=== PATIENT | female | born 1970 | race Caucasian/White ===

== ENCOUNTER 2024-04-06 06:15 | Inpatient (IN) ==
--- NOTE | 2024-03-17 12:12 | PAT Medication Instructions ---
Medication Instructions Date of Service March 17, 2024 Home Medications cholecalciferol (vitamin D3) 50 mcg (2,000 unit) capsule (Vitamin D3) 50 mcg PO QPM omeprazole 20 mg tablet,delayed release 20 mg PO BID pregabalin 50 mg capsule (Lyrica) 50 mg PO BID salsalate 750 mg tablet 750 mg PO TID topiramate 25 mg tablet (Topamax) 50 mg PO QAM tramadol 37.5 mg-acetaminophen 325 mg tablet 1 tab PO TID PRN Pain upadacitinib 15 mg tablet,extended release 24 hr (Rinvoq) 15 mg PO QPM ASK your surgeon for instructions salsalate 750 mg tablet 750 mg PO TID ASK your prescriber and surgeon upadacitinib 15 mg tablet,extended release 24 hr (Rinvoq) 15 mg PO QPM Take morning of surgery With a small sip of water, OTHERWISE NOTHING TO EAT OR DRINK AFTER MIDNIGHT: omeprazole 20 mg tablet,delayed release 20 mg PO BID pregabalin 50 mg capsule (Lyrica) 50 mg PO BID topiramate 25 mg tablet (Topamax) 50 mg PO QAM tramadol 37.5 mg-acetaminophen 325 mg tablet 1 tab PO TID PRN Pain (if needed) Take evening before surgery cholecalciferol (vitamin D3) 50 mcg (2,000 unit) capsule (Vitamin D3) 50 mcg PO QPM omeprazole 20 mg tablet,delayed release 20 mg PO BID pregabalin 50 mg capsule (Lyrica) 50 mg PO BID tramadol 37.5 mg-acetaminophen 325 mg tablet 1 tab PO TID PRN Pain (if needed) Other Notes If you have any questions please call us at [phone] or [phone] or [phone] or [phone]
--- NOTE | 2024-03-25 10:56 | Anesthesiology Consultation ---
Date of Service March 25, 2024 Assessment & Plan (1) Encounter for pre-operative examination: - Infectious disease screening: Per assessment on 03/25/24: No known recent infectious disease contacts or current infectious disease symptoms. - PCP visit (03/19/24): "Patient is a 53-year-old female who presents today for preoperative clearance for back surgery. The surgery is scheduled with Dr. Carney on April 06, 2024.. Patient is low medial risk for the listed procedure" - Check BSG AM DOS (Hx hypoglycemia- Rare, intermittent episodes typically related to prolonged fasting, episode post-operatively as well, OR made aware) - Anesthesia concern: Patient states she "freaks out" if mask/things are placed near face while fully awake. She states if "groggy"/asleep does not have an issue. - Neutropenia: Preop labs done 03/25/24 notes low WBC at 2.99 and critically low neutrophils at 0.84. Of note, patient taking Rinvoq for psoriatic arthritis. Note written to PCP regarding neutropenia. Received PCP response (dated 03/26/24) : "Neutropenia may be secondary to Rinvoq which is prescribed by rheumatology for psoriatic arthritis. Reviewed all testing in detail. No contraindications for upcoming surgery. She does have upcoming followup with rheumatology as well [after upcoming surgery]. She plans to hold Rinvoq 1 week prior to surgical procedure." > Surgeon's office made aware. - Case (including leukopenia/neutropenia) reviewed with Dr. Henry. Will recheck CBCD DOS. Patient otherwise acceptable risk for surgery. Chart Review Chart Review: Patient seen in Pre Admission Testing Teaching & Discussion Pre-Anesthesia Teaching/Discussion Notes: Instructed NPO after midnight before surgery,except medications with 15 cc of water. Medication instructions provided according to the PAT guidelines. History Surgery Operation Date: 04/06/24 11:05 Proposed Procedures p L4-S1 Decompression and Fusion with Spinal Cord Monitoring - Kush Carney, DO Height/Weight Height: 4 ft 11 in Weight: 64 kg Allergies Allergy/AdvReac Type Severity Reaction Status Date / Time dexamethasone [From Decadron] Allergy Mild Nausea Verified 03/15/24 07:29 secukinumab Allergy Mild Rash Verified 03/15/24 07:29 diclofenac Allergy Unknown ? Verified 03/25/24 11:25 Hives/nausea etodolac Allergy Unknown ? Verified 03/25/24 11:25 Hives/nausea hydroxychloroquine Allergy Unknown Unknown Verified 03/15/24 07:29 isotretinoin Allergy Unknown Unknown Verified 03/15/24 07:29 leflunomide Allergy Unknown Unknown Verified 03/15/24 07:29 meloxicam Allergy Unknown ? Verified 03/25/24 11:25 Hives/nausea methotrexate Allergy Unknown Unknown Verified 03/15/24 07:29 Medications Home Medications Medication Instructions Recorded Confirmed Last Taken cholecalciferol (vitamin D3) 50 50 mcg PO QPM 11/26/23 03/15/24 01/05/24 mcg (2,000 unit) capsule (Vitamin D3) omeprazole 20 mg tablet,delayed 20 mg PO BID 11/26/23 03/15/24 01/07/24 05:00 release pregabalin 50 mg capsule (Lyrica) 50 mg PO BID 11/26/23 03/15/24 01/07/24 05:00 salsalate 750 mg tablet 750 mg PO TID 11/26/23 03/15/24 12/31/23 topiramate 25 mg tablet (Topamax) 50 mg PO QAM 11/26/23 03/15/24 01/07/24 05:00 tramadol 37.5 mg-acetaminophen 325 1 tab PO TID PRN Pain 11/26/23 03/15/24 01/07/24 05:00 mg tablet upadacitinib 15 mg tablet,extended 15 mg PO QPM 11/26/23 03/15/24 01/06/24 18:00 release 24 hr (Rinvoq) Past Medical History Medical History (Updated 03/25/24 @ 11:31 by Sofia Cary) Chronic back pain Diverticulosis Fibromyalgia GERD (gastroesophageal reflux disease) Greater trochanteric pain syndrome of both lower extremities [place] [facility] [place] Right 01/2024 Symptoms improved since procedures Hx of migraine headaches Hypoglycemia Rare, intermittent episodes typically related to prolonged fasting, episode post-operatively as well Psoriasis Psoriatic arthritis Restless leg syndrome Weakness of both hips Exercise / Class Metabolic Activity II 4-5 Yardwork/Stairs/Walk up hill Past Surgical History Surgical History History of ankle surgery x2 History of carpal tunnel release of both wrists History of hip surgery Left percutaneous [place] [facility] [place] Right 01/2024 History of hip surgery Right percutaneous US tenotomy History of tonsillectomy and adenoidectomy Hx laparoscopic cholecystectomy Hx of bilateral breast reduction surgery Hx of section Hx of dilation and curettage mutliple Hx of esophagogastroduodenoscopy Hx of removal of cyst left ankle Hx of total hysterectomy Past Anesthesia History No Family Hx of Anesthesia Complications and Other (Rare, intermittent episodes typically related to prolonged fasting, episode post-operatively as well) History of PONV No Hx of PONV and Hx of Motion Sickness (Remote hx) Social History Smoking Status: Never smoker Do You Dip or Chew Tobacco: No Hx Alcohol Use: Yes Alcohol type: beer alcohol intake frequency: holidays/special occasions only Hx Substance Use: No substance use type: does not use Review of Systems Patient denies chest pain, shortness of breath, dyspnea on exertion, fever, chills, cough, wheezing, palpitations. Physical Exam Vital Signs BP 115/73 P 86 TEMP 98.6 SP02 100%RA RESP 16 Physical Full cervical extension range of motion. Full TMJ range of motion. TMD 3 finger breaths Mallampati Score II Dentition: intact Lungs: clear throughout to auscultation Cardiac: regular rate and rhythm, no murmurs noted Spine: normal Carotid arteries: negative bruit Extremities: no LE edema Lab Results Anesthesia Preop Results Results Anesthesia Widget: WBC 2.99 K/ul (4.8-10.8) L 03/25/24 Hgb 12.6 g/dl (12.0-16.0) 03/25/24 Hct 37.9 % (37.0-47.0) 03/25/24 Plt 326 K/uL (130-400) 03/25/24 Na 141 mmol/L (136-145) 03/25/24 K 4.2 mmol/L (3.5-5.1) 03/25/24 Cl 108 mmol/L (98-107) H 03/25/24 CO2 28 mmol/L (21-32) 03/25/24 BUN 10 mg/dl (6-23) 03/25/24 Creat 0.66 mg/dl (0.6-1.2) 03/25/24 Glucose Level 96 mg/dl (70-99(Fasting)) 03/25/24 PT 10.6 Seconds (9.0-12.0) 03/25/24 PTT 23 Seconds (21-31) 03/25/24 INR 1.0 (0.9-1.1) 03/25/24 Urine Color Yellow 03/25/24 Urine Appearance Clear (Clear) 03/25/24 Urine pH 8.0 (4.5-7.5) H 03/25/24 Urine Specific Gardner 1.004 (1.000-1.030) 03/25/24 Urine Protein Negative (Negative) 03/25/24 Urine Glucose (UA) Negative (Negative) 03/25/24 Urine Ketones Negative (Negative) 03/25/24 Urine Blood Negative (Negative) 03/25/24 Urine Nitrite Negative (Negative) 03/25/24 Urine Bilirubin Negative (Negative) 03/25/24 Urine Urobilinogen Negative (Negative) 03/25/24 Urine Leukocyte Esterase Negative (Negative) 03/25/24 Blood Type A Positive 03/25/24 Antibody Screen NEGATIVE 03/25/24 Testing Electrocardiogram Date: 03/25/24 Findings: + NSR @ (77) Chest X-Ray Date: 03/25/24 Findings: + NAD
[2024-04-06] MEDS: LR 60ML/HR IV SCH (06:51)
[2024-04-06] MEDS: ACETAMINOPHEN 500 MG TAB PO SCH (06:52)
[2024-04-06] MEDS: CeleBREX 200 MG CAP PO SCH (06:53)
[2024-04-06] MEDS: GABAPENTIN 900 MG DOSE PO SCH (06:53)
[2024-04-06] MEDS ORDERED: PROPOFOL IV EMULSION 10 MG/ML 20 ML VIAL IV ONE (06:56)
[2024-04-06] MEDS ORDERED: DEXAMETHASONE SOD INJ 4 MG/ML VIAL ONE (06:56)
[2024-04-06] MEDS ORDERED: LIDOCAINE 2% 2 ML VIAL/AMP(20MG/ML) INFIL ONE ×2 (06:56)
[2024-04-06] MEDS ORDERED: ONDANSETRON INJ 2 MG/ML 2 ML VIAL ONE (06:56)
[2024-04-06] MEDS ORDERED: MIDAZOLAM HCL 1 MG/ML 2ML VIAL ONE (06:56)
[2024-04-06] MEDS ORDERED: fentaNYL citrate PF 100 MCG/2 ML VIAL ONE (06:56)
[2024-04-06] MEDS ORDERED: ROCURONIUM BROMIDE 10 MG/ML 5 ML VIAL IV ONE ×8 (06:57→08:03)
[2024-04-06 07:00] LABS: Basophils # (auto) 0.02 K/uL (0.00-0.20); Basophils % (auto) 0.6 %; Eosinophils # (auto) 0.03 K/uL (0.00-0.50); Eosinophils % (auto) 0.8 %; Hematocrit (blood only) 37.9 % (37.0-47.0); Hemoglobin 12.9 g/dl (12.0-16.0); Immature Granulocytes # (auto) 0.02 K/uL (0.01-0.20); Immature Granulocytes % (auto) 0.6 %; Lymphocytes # (auto) 1.23 K/uL (1.20-3.40); Lymphocytes % (auto) 34.8 %; Mean Corpuscular Hemoglobin 30.9 pg (25.0-34.0); Mean Corpuscular Volume 90.7 fL (80.0-100.0); Mean Platelet Volume 8.5 fL (9.4-12.4); Monocytes # (auto) 0.46 K/uL (0.11-0.59); Neutrophils # (auto) 1.77 K/uL (1.40-6.50); Neutrophils % (auto) 50.2 %; Platelet Count 239 K/uL (130-400); RDW Coefficient of Variation 12.5 % (11.5-14.5); RDW Standard Deviation 41.2 fL (36.4-46.3); Red Blood Count 4.18 M/uL (4.20-5.40); White Blood Count 3.53 K/ul (4.8-10.8)
[2024-04-06] MEDS: LR 15ML/HR IV SCH (07:00)
--- NOTE | 2024-04-06 07:36 | History & Physical Bridge Note ---
Date of Service April 06, 2024 History & Physical Bridge Note I have examined the patient, reviewed the History & Physical and in the interval since the performance of the History & Physical I have noted the following changes of clinical significance: no changes noted
--- NOTE | 2024-04-06 07:37 | History & Physical Report ---
Date of Service April 06, 2024 Assessment & Plan (1) Postlaminectomy syndrome of lumbar region: Plan: L4-S1 decompression and fusion History of Present Illness Chief Complaint: Back and leg pain Primary Care Provider: Nina Santiago DO This is a 53-year-old female who presents with chronic persistent back and leg pain and failing course of nonoperative care is here for surgical intervention. Allergies Allergy/AdvReac Type Severity Reaction Status Date / Time dexamethasone [From Decadron] Allergy Mild Nausea Verified 04/06/24 06:45 secukinumab Allergy Mild Rash Verified 04/06/24 06:45 diclofenac Allergy Unknown ? Verified 04/06/24 06:45 Hives/nausea etodolac Allergy Unknown ? Verified 04/06/24 06:45 Hives/nausea hydroxychloroquine Allergy Unknown Nausea Verified 04/06/24 06:45 isotretinoin Allergy Unknown Unknown Verified 04/06/24 06:45 leflunomide Allergy Unknown Unknown Verified 04/06/24 06:45 meloxicam Allergy Unknown ? Verified 04/06/24 06:45 Hives/nausea methotrexate Allergy Unknown Unknown Verified 04/06/24 06:45 Home Medications Medication Instructions Recorded Confirmed Type cholecalciferol (vitamin D3) 50 50 mcg PO QPM 11/26/23 04/06/24 History mcg (2,000 unit) capsule (Vitamin D3) omeprazole 20 mg tablet,delayed 20 mg PO BID 11/26/23 04/06/24 History release pregabalin 50 mg capsule (Lyrica) 50 mg PO BID 11/26/23 04/06/24 History salsalate 750 mg tablet 750 mg PO TID 11/26/23 04/06/24 History topiramate 25 mg tablet (Topamax) 50 mg PO QAM 11/26/23 04/06/24 History tramadol 37.5 mg-acetaminophen 325 1 tab PO TID PRN Pain 11/26/23 04/06/24 History mg tablet upadacitinib 15 mg tablet,extended 15 mg PO QPM 11/26/23 04/06/24 History release 24 hr (Rinvoq) Past Med/Surg History Problem List (Updated 04/06/24 @ 07:37 by Kush Carney DO) Postlaminectomy syndrome of lumbar region Encounter for pre-operative examination Degenerative spondylolisthesis Degenerative disc disease, lumbar Weakness of both hips Vitamin D deficiency Medical History (Updated 04/06/24 @ 07:37 by Kush Carney DO) Hypoglycemia Rare, intermittent episodes typically related to prolonged fasting, episode post-operatively as well Hx of migraine headaches Greater trochanteric pain syndrome of both lower extremities Left percutaneous US tenotomy 12/2023 [facility] (local anesthesia only), Right 01/2024 Symptoms improved since procedures Diverticulosis Psoriasis Fibromyalgia Chronic back pain GERD (gastroesophageal reflux disease) Restless leg syndrome Psoriatic arthritis Weakness of both hips Surgical History Hx of esophagogastroduodenoscopy History of hip surgery Right percutaneous US tenotomy History of hip surgery Left percutaneous US tenotomy 12/2023 [facility] (local anesthesia only), Right 01/2024 History of carpal tunnel release of both wrists History of tonsillectomy and adenoidectomy Hx of bilateral breast reduction surgery Hx of section Hx of total hysterectomy Hx of dilation and curettage mutliple Hx laparoscopic cholecystectomy Hx of removal of cyst left ankle History of ankle surgery x2 Social History Smoking Status: Never smoker Tobacco Type: Cigarettes Second Hand Exposure: No; Do You Dip or Chew Tobacco: No; Tobacco Cessation Education Requested by Patient: No Hx Alcohol Use: Yes Alcohol type: beer Hx Substance Use: No Preferred Language: Montenegrin Communication Ability: Effective City Detective Required: No Beliefs That Will Affect Care: None Current Living Situation: Spouse Other Information That Helps Us Care for You: No Feels Safe at Home: Yes Safety Concerns: Feels Safe At This Time Assistive Devices: Glasses Physical Exam Physical Exam: Patient is alert and oriented heart regular in rhythm lungs clear Results & Data Results & Data Vital Signs (Past 12 Hours) Vital Signs Temp Pulse Resp BP Pulse Ox O2 Del Method 04/06/24 06:41 36.8 C 73 20 141/65 H 99 Room Air
[2024-04-06] MEDS: ceFAZolin 2000MG 2,000 MG/15 ML SYR IV SCH (07:45)
[2024-04-06] MEDS ORDERED: ePHEDrine sulfate 50 MG/ML AMP IV PRN (07:47)
[2024-04-06] MEDS ORDERED: ONDANSETRON INJ 2 MG/ML 2 ML VIAL IV PRN ×2 (07:47→11:54)
[2024-04-06] MEDS ORDERED: ATROPINE SULFATE 0.1 MG/ML 10ML SYR IV PRN (07:47)
[2024-04-06] MEDS ORDERED: HYDROmorphone INJ 2 MG/ML SYR/VIAL IV PRN (07:47)
[2024-04-06] MEDS ORDERED: HYDROmorphone INJ 1 MG/ML SYRINGE IV PRN (07:47)
[2024-04-06] MEDS: BUPIVACAINE/EPINEPHRINE 0.25% 1:200,000 30 ML VIAL ONE (08:08)
[2024-04-06] MEDS ORDERED: KETAMINE HCL 10MG/ML SYR ONE (08:08)
[2024-04-06] MEDS ORDERED: GLYCOPYRROLATE 0.2 MG/ML VIAL ONE (08:08)
[2024-04-06] MEDS ORDERED: ePHEDrine sulfate 50 MG/5 ML SYR ONE (08:20)
[2024-04-06] MEDS ORDERED: SUGAMMADEX SODIUM 200 MG/2 ML VIAL IV ONE (08:20)
[2024-04-06] MEDS: ceFAZolin 330 MG/ML 1 GM VIAL ONE (09:22)
[2024-04-06] MEDS: FLOSEAL HEMOSTATIC MATRIX 10ML TOP ONE (09:22)
[2024-04-06] MEDS ORDERED: MoRPHine SULFATE 2 MG/ML CARP ONE (09:35)
--- NOTE | 2024-04-06 09:37 | Operative Report ---
Post Operative Report Pre & Post Diagnosis Operation Date: 04/06/24 07:45 Pre-Op Diagnosis: Spinal Stenosis of Lumbar Region with Radiculopathy Lumbar spondylolisthesis with neurogenic claudication Post-Op Diagnosis: same I identified the patient and participated in the time-out.: Yes Procedure Operation Date: 04/06/24 07:45 Actual Procedures #1 lumbar decompression with bilateral medial facetectomies and foraminotomies L3-L4, L4-L5 and L5-S1. #2 posterior spinal fusion L5-S1. #3 placement posterior instrumentation L4-S1. #4 interbody fusion L4-L5 L5-S1. #5 placement Spira 8 x 22 mm x 2 at L5-S1 and 12 x 22 x 2 mm at L4-5. #6 placement of locally harvested morselized autograft combined with infuse sponge and Koros in the posterior gutters. #7 placement of local autograft posterior gutters. #8 application of versa wrap over the exposed dura. Surgeon Kush Carney, In House Cra Jamilah Rose Estimated Blood Loss 300 Findings Consistent with Post-Op Diagnosis Specimens None Indications This is a 53-year-old female who presents above-mentioned diagnosis after failing course of nonoperative care is here for surgical invention. Description of Procedure Patient was met with identified informed consent obtained. Patient was then taken to the operative suite underwent intubation placed in a prone position on the Marc table on top of the Juan M frame. Lumbar spine was then prepped and draped in normal sterile fashion. Sharp dissection with the assistance of Bovie cautery form down to and exposing the lamina and transverse processes of L4-L5 and sacral ala bilaterally. From caudal to cephalad fashion complete laminectomy of L5 was performed including bilateral medial facetectomies and foraminotomies addressing severe spinal stenosis. Then proceeded to perform a complete laminectomy of L4 again with bilateral medial facetectomies and foraminotomies addressing severe spinal stenosis and lastly partial laminectomy of L3 with bilateral medial facetectomies to address subarticular disease. Pedicle screws were then placed in L4-L5 and S1 levels bilaterally with assistance of fluoroscopy in the proper size clint placed. By way of transforaminal approach on the right discectomy of L5-S1 was performed endplates guided to subcortical bleeding bone and 8 x 22 mm spiral cage filled with os designed tapped into position. Then proceeded to the left transforaminal region at L5-S1. Discectomy formed endplates grade 2 subcortical bleeding bone and a second 8 x 22 mm Spira cage filled with os designed tapped into position. Then proceeded L4-5. By way of transforaminal approach on the left discectomy performed endplates guarded distal cortical bleeding bone and a 12 x 22 mm spiral cage filled with os designed tapped into position. Then proceeded to the right transforaminal region at L4-5. Again discectomy performed endplates guided to subcortical bleeding bone and a second 12 x 22 mm spiral cage filled with os designed tapped into position. The rods then compressed locked into final position bilaterally. The transverse processes of L4-5 and sacral ala burred to subcortical bleeding bone. Infuse collagen sponge combined with Koros and local autograft placed in the posterior gutters. Versa wrap placed over the exposed dura. 15 round RUPERT drain inserted. The incision was then closed with 1 Vicryl the fascia 2-0 Vicryl subcutaneously and 4 Monocryl for fascial closure. Steri-Strips sterile dressing placed. Patient waken taken to PACU in stable condition. Please note spinal cord monitoring was utilized at the procedure no changes noted. Jamilah Rose was present out the entire surgery and while the patient positioning complex portions of the surgery and final skin closure. Im ordering 20 grams of Triple [place] Collagen Powder (ParkerVision [id number]) to treat an incision wound that was caused by a spine procedure. The incision is approxim ately 2 cm(W) x 4 cm(L) into the joint (D) in size and is a full thickness wound. Triple [place] collagen comes in 1 gram packets so 20 packets were ordered. Given the size of the wound, with light to moderate exudate I chose to order a 20 day supply. The patient will be provided instructions for proper application of the collagen wound kit. The patient will be asked to apply the collagen powder daily and then cover it with sterile dressings dispensed. Collagen was selected as I expect the collagen to attract monocytes and fibroblasts, act as a sacrificial substrate for MMPs, and ultimately proved a matrix for tissue and vessel growth. The collagen will act as a primary dressing in this scenario. It is medically necessary for proper healing of these wounds to improve bioavailability and contact with each wound surface, this is also to help prevent infection of wounds and promote healing ultimately leading to a better healing outcome and limit the risk of infection. I attest to the content of the Intraoperative Record and any orders documented therein. Any exceptions are noted below.
--- NOTE | 2024-04-06 09:39 | Fluoroscopy Report ---
FL lumbar spine 2-3V CLINICAL HISTORY: L4-S1 DECOMPRESSION COMPARISON STUDY: MRI lumbar spine 02/09/2024 FLUOROSCOPY TIME: 27.4 seconds FLUOROSCOPY IMAGES: 2 EXPOSURE DOSE: 24.12 mGy FINDINGS: Posterior interbody clint and screw fusion with discectomy at L4-S1. The hardware appears int act. No unexpected opaque foreign bodies. IMPRESSION: Fluoroscopic assistance as above. ACT 112: Negative or not required by law. Electronically signed by: Freddie Linton M.D. 04/06/2024 9:37 AM
--- OUTSIDE RECORDS SUMMARY | 2024-04-06 09:51 | External Medical Summary | Summary of Care ---
Author Name Unknown Organization [facility] Address [address] [place] [address] Phone [phone] Care Team Providers Care Tile Finisher Name Role Phone Nina Santiago DO Primary Care Provider +1- [phone] Reason for Visit * Reason Onset Date Comments Fax 03/26/2024 Encounter Details Date Type Department Care Team (Late st Contact Info) Description 03/26/2024 [facility] [address] [place] [address] Nina Santiago DO [address] [place] [address] Fax Allergies Active Allergy Reactions Criticality Noted Date Comments Isotretinoin Other (Please comment) 07/19/2014 High Trigylcerides Diclofenac-Misoprostol Other (Please comment) 01/25/2020 Elevated liver enzymes. Secukinumab Rash 10/24/2023 Dexamethasone Nausea/vomiting 05/15/2018 Nausea when rakes decadron Diclofenac 05/07/2023 Etodolac 05/07/2023 Leflunomide 05/07/2023 Methotrexate 05/07/2023 Meloxicam Hives 05/07/2023 Hydroxychloroquine 05/07/2023 documented as of this encounter (statuses as of 03/30/2024) Medications Medication Sig Dispensed Refills Start Date End Date Status Cholecalciferol (VITAMIN D-3) 25 MCG (1000 UT) Capsule Take 1 Capsule by mouth in the morning. Active Topiramate 25 MG Oral Tablet (Topamax)Indications :Other migraine with status migrainosus, not intractable Take 1 Tablet by mouth in the morning and 1 Tablet before bedtime. 60 Tablet 5 10/24/2023 Active Omeprazole 20 MG Oral Capsule Delayed Release (PriLOSEC)Indication s:Gastroesophageal reflux disease without esophagitis Take 1 Capsule by mouth 2 times a day. 180 Capsule 12/23/2023 Active Lyrica 50 MG Oral Capsule Take 1 Capsule by mouth in the morning and 1 Capsule before bedtime. 60 Capsule 3 02/09/2024 Active Rinvoq 15 MG Oral Tablet Extended Release 24 Hour (Upadacitinib ER)Indications:Psori atic arthritis (HCC),Generalized osteoarthritis,Fibro myalgia,Psoriasis Take 1 Tablet by mouth daily. 30 Tablet 3 02/10/2024 Active traMADol-Acetaminoph en 37.5-325 MG Oral Tablet (Ultracet) Take 1 Tablet by mouth every 8 hours as needed for Pain, Moderate. 270 Tablet 02/16/2024 Active Salsalate 750 MG Oral Tablet Take 1 Tablet by mouth in the morning and 1 Tablet at noon and 1 Tablet before bedtime. 270 Tablet 1 03/01/2024 Active documented as of this encounter (statuses as of 03/30/2024) Active Problems Problem Noted Date Diagnosed Date Psoriatic arthritis 06/06/2021 Benign paroxysmal positional vertigo due to bilateral vestibular disorder 04/01/2018 S/P bilateral breast reduction 12/13/2016 Diverticulosis 08/12/2016 Restless legs syndrome 03/01/2015 Gastroesophageal reflux disease without esophagi tis 03/01/2015 Vitamin D deficiency 07/20/2014 DDD (degenerative disc disease), lumbar 07/19/19 15 Fibromyalgia Psoriasis documented as of this encounter (statuses as of 03/30/2024) Resolved Problems Problem Noted Date Diagnosed Date Resolved Date Chronic pharyngitis 12/05/2015 08/12/19 17 documented as of this encounter (statuses as of 03/30/2024) Immunizations Name Administration Dates Next Due TDAP (age 10 and older)(Boostrix) 03/03/2015 Zoster Vaccine Recombinant (Shingrix) 11/20/2021 documented as of this encounter Social History Tobacco Use Types Packs/Day Years Used Date Smoking Tobacco: Former Cigarettes Q uit: 07/19/1996 Smokeless Tobacco: Never Alcohol Use Standard Drinks/Week Comments No 0 (1 standard drink = 0.6 oz pur e alcohol) PHQ-2 Answer Date Recorded PHQ Adult Total Score 3 07/11/2023 Hunger Vital Sign Answer Date Recorded Within the past 12 months, y ou worried that your food would run out before you got the money to buy more. Never true 07/11/19 24 Within the past 12 months, t he food you bought just didn't last and you didn't have money to get more. Never true 07/11/2023 Childcare Answer Date Recorded Do you feel overwhelmed with taking care of a child, family member or friend? No 07/11/2023 Does your family need help f inding childcare? (Household - for ages 0-17 years) Not on file 07/11/2023 Clothing Answer Date Recorded Have you been unable to get clothing when it was really needed? No 07/11/2023 Is your family able to get c lothes or diapers when needed? (Household - for ages 0-17 years) Not on file 07/11/2023 Personal Safety Answer Date Recorded Do you feel unsafe or have concerns for your saf ety? No 07/11/2023 Do you have concerns for you r family's safety? (Household - for ages 0-17 years) Not on file 07/11/2023 Utilities Answer Date Recorded Do you have trouble paying y our heating, water, or electric bill? No 07/11/2023 Is your family able to pay t he heat, water, or electric bill? (Household - for ages 0-17 years) Not on file 07/11/2023 Does your family have access to good internet? (Household - for ages 0-17 years) Not on file 07/11/2023 Employment Status Answer Date Recorded Are you unemployed or without regular income? No 07/11/2023 Does the household have a re gular source of income? (Household - for ages 0-17 years) Not on file 07/11/2023 Social Connections Answer Date Recorded How often do you feel lonely or isolated from th ose around you? Never 07/11/2023 Financial Resource Strain Answer Date R ecorded Do you have any trouble payi ng for your medications, or do you think you might in the future? No 07/11/2023 Does your family have troubl e paying for medicine? (Household - for ages 0-17 years) Not on file 07/11/2023 Transportation Needs Answer Date Record ed READ ONLY Do you have troubl e getting a ride to medical visits or work? Never True 07/11/2023 Does your family have a hard time getting a ride to doctors visits? (Household - for ages 0-17 years) Not on file 07/11/2023 Has lack of transportation k ept you from medical appointments, meetings, work, or from getting things needed for daily living? Check all that apply. (Adult - for ages 18 years and over) Not on file 07/11/2023 Do you (or your family) have trouble finding or paying for a ride (transportation)? (Household - for ages 0-17 years) Not on file 07/11/2023 Housing Stability Answer Date Recorded Do you currently live in a s helter or have no steady place to sleep at night? No 07/11/2023 READ ONLY Do you think you a re at risk of becoming homeless? No 07/11/2023 Does your family worry about paying for your home or becoming homeless? (Household - for ages 0-17 years) Not on file 0 07/11/2023 Are you homeless or worried that you might be in the future? (Adult - for ages 18 years and over) Not on file Are you (or your family) jero eless or worried that you might be in the future? (Household - for ages 0-17 years) Not on file Food Insecurity Answer Date Recorded Do you need food for this week? No 07/11/2023 Are you able to get enough f ood for your family? (Household - for ages 0-17 years) Not on file 07/11/2023 Does your family need food t his week? (Household - for ages 0-17 years) Not on file 07/11/2023 Do you always have enough fo od for your family? (Household - for ages 0-17 years) Not on file 07/11/2023 Sex and Gender Information Value Date Recorded Sex Assigned at Female 07/11/2023 7:13 AM EST Gender Identity Female 07/11/2023 7:13 AM EST Sexual Orientation Straight 07/11/2023 7: 13 AM EST Job Start Date Occupation Industry Not on file Not on file Not on file documented as of this encounter Miscellaneous Notes * Telephone Encounter - Susanna Betancourt OSA - 03/30/2024 11:08 AM EDT Office note is faxed * Telephone Encounter - Angie Fragoso LPN - 03/30/2024 10:46 AM EDT Pt updated Please assist with faxing office note for pre op clearance * Telephone Encounter - Kelvin Ramirez PA-C - 03/26/2024 10:10 AM EDT Reviewed in detail. Neutropenia may be secondary to Rinvoq which is prescribed by rheumatology for psoriatic arthritis. Reviewed all testing in detail. No contraindications for upcoming surgery. She does have upcoming follow-up with rheumatology as well. She plans to hold Rinvoq one week prior to surgical procedure. * Telephone Encounter - Angie Fragoso LPN - 03/26/2024 10:03 AM EDT Received, scanned in and placed on desk of provider of pre op clearance to be reviewed * Telephone Encounter - Kourtney Wynn OSA - 03/26/2024 9:41 AM EDT Received a call asking if fax was received by office. Name/Company sending fax: [facility] pre admission testing What fax is pertaining to: abnormal Lab results and a note, Pt has low WBC and low neutrophils and they would like this to be reviewed before surgery 10/1 Date(s) they sent request: 03/25 and 03/26 Verified fax number they are sending to is correct (Y or N): yes Callback Number for the clinic to call to verified if fax was received: documented in this encounter Plan of Treatment Upcoming Encounters Date Type Department Care Team (Late st Contact Info) Description 06/09/2024 8:00 AM EST Office Visit Rheumatology [id number] [place] [address] Ame Lindsey CRNP [address] [place] [address] 07/16/2024 7:20 AM EST Office Visit Family Practice [place] [place] [address] [place] [address] Nina Santiago DO [address] [place] [address] Health Maintenance Due Date Last Done Comments Hepatitis B Vaccine (1 of 3 - 19+ 3-dose series) 10/08/1990 Cologuard 10/08/2016 Colonoscopy 10/08/2016 Colorectal Cancer Screening 10/08/2016 Fecal Occult Blood Test 10/08/2016 Sigmoidoscopy 10/08/2016 Zoster Vaccines (2 of 2) 01/15/2022 11/20/2021 COVID-19 Vaccine (1 - season) 2024 Influenza Vaccine (FLU shot) (#1) 2024 Mammogram 03/27/2024 03/27/2023, 03/07, 03/06/2021, Additional history exists Depression Screening 07/11/2024 07/11/2023 DTap/Tdap Vaccines (2 - Td or Tdap) 03/03/2025 03/03/2015 Diabetes Screening 03/25/2027 03/25/2024, 0 11/21/2023, 06/25/2022, Additional history exists Lipid Panel 11/20/2028 11/21/2023, 06/07, 06/06/2021, Additional history exists Pap Smear Discontinued 12/07/2018, 11/05, 07/04/2015, Additional history exists HPV (Gardasil) Vaccine Aged Out No lo nger eligible based on patient's age to complete this topic MENINGOCOCCAL (MENACTRA/MENVEO) Aged Out No longer eligible based on patient's age to complete this topic Pneumococcal Vaccine: Pediatrics (0 to 5 Years) and At-Risk Patients (6 to 64 Years) Aged Out No longer eligible based on patient's age to complete this topic documented as of this encounter Medical Devices Not on filedocumented as of this encounter Advance Directives * Full Code (Latest Code Status on File) Date Activated Date Inactivated Comments 08/22/2016 2:16 PM 08/23/2016 6:41 PM This order r eflects the patients wishes and were consensually agreed upon. * Full Code Date Activated Date Inactivated Comments 02/08/2016 11:23 AM 02/09/2016 2:36 PM This order re flects the patients wishes and were consensually agreed upon. Question Answer Comments Discussion of Advance Directives occurred with: Patient Does the patient have a Living Will? No Does the patient have Health Care Power of Attor mello? No Care Teams Tile Finisher Relationship Specialty Start Date End Date Nina Santiago DO [address] [facility] [place] [address] PCP - General Family Medicine 07/11/23 documented as of this encounter
--- OUTSIDE RECORDS SUMMARY | 2024-04-06 09:51 | External Medical Summary | Summary of Care ---
Author Name Unknown Organization [facility] Address [address] [place] [address] Phone [phone] Care Team Providers Care Options Advisor Name Role Phone Nina Santiago DO Primary Care Provider +1- [phone] Encounter Details Date Type Department Care Team (Late st Contact Info) Description 03/26/2024 Orders Only Family Practice [address], [place] [address] [place] [address] Nina Santiago DO [address] [place] [address] Allergies Active Allergy Reactions Criticality Noted Date Comments Isotretinoin Other (Please comment) 07/19/2014 High Trigylcerides Diclofenac-Misoprostol Other (Please comment) 01/25/2020 Elevated liver enzymes. Secukinumab Rash 10/24/2023 Dexamethasone Nausea/vomiting 05/15/2018 Nausea when rakes decadron Diclofenac 05/07/2023 Etodolac 05/07/2023 Leflunomide 05/07/2023 Methotrexate 05/07/2023 Meloxicam Hives 05/07/2023 Hydroxychloroquine 05/07/2023 documented as of this encounter (statuses as of 03/26/2024) Medications Medication Sig Dispensed Refills Start Date [...] as of this encounter (statuses as of 03/26/2024) Active Problems Problem Noted Date Diagnosed Date Psoriatic arthritis 06/06/2021 Benign paroxysmal positional vertigo due to bilateral vestibular disorder 04/01/2018 S/P bilateral breast reduction 12/13/2016 Diverticulosis 08/12/2016 Restless legs syndrome 03/01/2015 Gastroesophageal reflux disease without esophagi tis 03/01/2015 Vitamin D deficiency 07/20/2014 DDD (degenerative disc disease), lumbar 07/19/19 15 Fibromyalgia Psoriasis documented as of this encounter (statuses as of 03/26/2024) Resolved Problems Problem Noted Date Diagnosed Date Resolved Date Chronic pharyngitis 12/05/2015 08/12/19 17 documented as of this encounter (statuses as of 03/26/2024) Immunizations Name Administration Dates Next Due TDAP [...] 07/11/2023 Does the household have a re lar source of income? (Household - for ages [...] on file documented as of this encounter Plan of Treatment Upcoming Encounters Date Type Department Care Team (Late st Contact Info) Description 06/09/2024 8:00 AM EST Office Visit Rheumatology [facility] [address] [place], [place] [address] Ame Lindsey CRNP [address] [place] [address] 07/16/2024 7:20 AM EST Office Visit Family Practice [address], [place] [address] [place] [address] Nina Santiago DO [address] [place] [address] Health Maintenance Due Date Last Done Comments [...] Not on filedocumented as of this encounter Procedures Procedure Name Priority Date/Time Associated Diagnosis Comments XR CHEST 2 VIEWS Routine 03/25/2024 CHEMISTRY-OUTSIDE Routine 03/25/2024 documented in this encounter Results * CHEMISTRY-OUTSIDE (03/25/2024) Not all results display below - see scan for full detail OUTSIDE LAB (SEE SCANNED REPORT) Comment:[facility]-BMP,CBCD CREATININE 0.66 0.6 - 1.2 MG/DL OUTSIDE LAB (SEE SCANNED REPORT) EGFR 101.6 60 ML/MIN OUTSIDE LA B (SEE SCANNED REPORT) POTASSIUM 4.2 3.5 - 5.1 MMOL OUTSIDE LAB (SEE SCANNED REPORT) GLUCOSE 96 70 - 99 MG/DL OUTSIDE LAB (SEE SCANNED REPORT) HOURS FASTING OUTSID E LAB (SEE SCANNED REPORT) TRIGLYCERIDES-OUT SIDE LAB OUTSIDE LAB (SEE SCANNED REPORT) CHOLESTEROL-OUTSI DE LAB OUTSIDE LAB (SEE SCANNED REPORT) HDL-OUTSIDE LAB OUTS MIRANDA LAB (SEE SCANNED REPORT) CHOL/HDL RATIO-OUTSIDE LAB OUTSIDE LA B (SEE SCANNED REPORT) LDL (CALCULATED)-OUTS MIR[facility]DA LAB OUTSIDE LAB (SEE SCANNED REPORT) LDL (DIRECT MEASURE)-OUTSIDE LAB OUTSIDE LAB (SEE SCANNED REPORT) HEMOGLOBIN, T0A-NOVBDFL LAB OUTSIDE LAB (SEE SCANNED REPORT) PHOSPHORUS-OUTSID E LAB OUTSIDE LAB (SEE SCANNED REPORT) PTH-OUTSIDE LAB OUTS MIR[facility]DA LAB (SEE SCANNED REPORT) MICROALBUMIN RATIO-OUTSIDE LAB OUTSIDE LA B (SEE SCANNED REPORT) PROTEIN, UA-OUTSIDE LAB OUTSIDE LAB (SEE SCANNED REPORT) HGB 12.6 12 - 16 G/DL OUTSIDE LAB (SEE SCANNED REPORT) 03/25/2024 Kush Carney MD LABORATORY OUTSIDE LAB (SEE SCANNED REPORT) * XR CHEST 2 VIEWS (03/25/2024) Anatomical Region Laterality Modality Chest Other 03/25/2024 Kush Carney MD RADIOLOGY (RAD GE NERAL) documented in this encounter Advance Directives * Full Code [...] Power of Attor mello? No Care Teams Options Advisor Relationship Specialty Start Date End Date Nina Santiago DO [address] [facility] [place] [address] PCP - General Family Medicine 07/11/23 documented as of this encounter
--- OUTSIDE RECORDS SUMMARY | 2024-04-06 09:51 | External Medical Summary | Summary of Care ---
Author Name Unknown Organization [facility] Address [address] [place] [address] Phone [phone] Care Team Providers Care Wet Cotton Feeder Name Role Phone SantiagoNina Yahaira SCHAFFER Primary Care Provider +1- [phone] Encounter Details Date Type Department Care Team (Late st Contact Info) Description 03/25/2024 Result Scan Unspecified Department <No scans attached> Allergies Active Allergy Reactions Criticality Noted Date [...] No 07/11/2023 Does the household have a [facility] source of income? (Household - for ages [...] 06/09/2024 8:00 AM EST Office Visit Rheumatology [facility] [address] [email or web address] [address] Ame Lindsey CRNP [address] [place], [place] [address] 07/16/2024 7:20 AM EST Office Visit Family Practice [address], [place] [address] [place] [address] Nina Santiago DO [address] [place] [address] Health Maintenance Due Date Last Done Comments [...] Procedure Name Priority Date/Time Associated Diagnosis Comments OUTSIDE LAB RESULTS 03/25/2024 OUTSIDE LAB RESULTS 03/25/2024 EKG SCANNED RESULT 03/25/2024 documented in this encounter Results * OUTSIDE LAB RESULTS (03/25/2024) 03/25/2024 No Physician Data Unknown LABORATORY * OUTSIDE LAB RESULTS (03/25/2024) 03/25/2024 No Physician Data Unknown LABORATORY * EKG SCANNED RESULT (03/25/2024) 03/25/2024 No Physician Data Unknown EKG documented in this encounter Advance Directives * [...] Power of Attor mello? No Care Teams Wet Cotton Feeder Relationship Specialty Start Date End Date Nina Santiago DO [address] [facility] [place] [address] PCP - General Family Medicine 07/11/23 documented as of this encounter
--- OUTSIDE RECORDS SUMMARY | 2024-04-06 09:51 | External Medical Summary | Summary of Care ---
Author Name Unknown Organization [facility] Address [address] [place] [address] Phone [phone] Care Team Providers Care Stretching Machine Operator Name Role Phone Nina Santiaog DO Primary Care Provider +1- [phone] Reason for Visit * Reason Onset Date Comments Fax 03/26/2024 Encounter Details Date Type Department Care Team (Late st Contact Info) Description 03/[facility] [address] [place] [address] Nina Santiago DO [address] [place] [address] Fax Allergies Active Allergy Reactions [...] encounter Miscellaneous Notes * Telephone Encounter - Angie Fragoso LPN [...] was received by office. Name/Company sending fax: [facility] pre admission testing What fax is pertaining to: abnormal Lab results and a note, Pt has low WBC and low neutrophils and they would like this to be reviewed before surgery 04/06 Date(s) they sent request: 03/25 and 03/26 Verified fax number they are sending to is correct (Y or N): yes Callback Number for the clinic to call to verified if fax was received: documented in this encounter Plan of Treatment Upcoming Encounters Date Type Department Care Team (Late st Contact Info) Description 06/09/2024 8:00 AM EST Office Visit Rheumatology [facility] [address] [place] [address] Ame Lindsey CRNP [address] [place] [address] 07/16/2024 7:20 AM EST Office Visit Family Practice [address], [place] [address] [place] [id number] Nina Santiago DO [address] [place] [address] Health Maintenance Due Date Last Done Comments [...] Power of Attor mello? No Care Teams Stretching Machine Operator Relationship Specialty Start Date End Date Nina Santiago DO [address] [facility] [place] [address] PCP - General Family Medicine 07/11/23 documented as of this encounter
--- OUTSIDE RECORDS SUMMARY | 2024-04-06 09:51 | External Medical Summary | Summary of Care ---
Author Name Unknown Organization [facility] Address [address] [place] [address] Phone [phone] Care Team Providers Care Label Pinker Name Role Phone Nina Santiago DO Primary Care Provider [phone]- [phone] Encounter Details Date Type Department Care Team (Late st Contact Info) Description 04/02/2024 Orders Only Family Practice [place] [facility] [address] [place] [address] Nina Santiago DO [address] [place] [address] Encounter for screening mammogram for breast cancer* Allergies Active Allergy Reactions Criticality Noted Date Comments Isotretinoin Other (Please comment) 07/19/2014 High Trigylcerides Diclofenac-Misoprostol Other (Please comment) 01/25/2020 Elevated liver enzymes. Secukinumab Rash 10/24/2023 Dexamethasone Nausea/vomiting 05/15/2018 Nausea when rakes decadron Diclofenac 05/07/2023 Etodolac 05/07/2023 Leflunomide 05/07/2023 Methotrexate 05/07/2023 Meloxicam Hives 05/07/2023 Hydroxychloroquine 05/07/2023 documented as of this encounter (statuses as of 04/02/2024) Medications Medication Sig Dispensed Refills Start Date End Date Status Cholecalciferol (VITAMIN D-3) 25 MCG (1000 UT) Capsule Take 1 Capsule by mouth in the morning. Active Topiramate 25 MG Oral Tablet (Topamax)Indications :Other migraine with status migrainosus, not intractable Take 1 Tablet by mouth in the morning and 1 Tablet before bedtime. 60 Tablet 5 10/24/2023 Active Lyrica 50 MG Oral Capsule Take [...] before bedtime. 270 Tablet 1 03/01/2024 Active Omeprazole 20 MG Oral Capsule Delayed Release (PriLOSEC)Indication s:Gastroesophageal reflux disease without esophagitis Take 1 Capsule by mouth 2 times a day. 180 Capsule 1 03/30/2024 Active documented as of this encounter (statuses as of 04/02/2024) Active Problems Problem Noted Date Diagnosed Date Psoriatic arthritis 06/06/2021 Benign paroxysmal positional vertigo due to bilateral vestibular disorder 04/01/2018 S/P bilateral breast reduction 12/13/2016 Diverticulosis 08/12/2016 Restless legs syndrome 03/01/2015 Gastroesophageal reflux disease without esophagi tis 03/01/2015 Vitamin D deficiency 07/20/2014 DDD (degenerative disc disease), lumbar 07/19/19 15 Fibromyalgia Psoriasis documented as of this encounter (statuses as of 04/02/2024) Resolved Problems Problem Noted Date Diagnosed Date Resolved Date Chronic pharyngitis 12/05/2015 08/12/19 17 documented as of this encounter (statuses as of 04/02/2024) Immunizations Name Administration Dates Next Due TDAP [...] on file documented as of this encounter Progress Notes * Joise Yang RN - 04/02/2024 1:35 PM EDT Provider to address: NA Reason for Call: No chief complaint on file. Contact: Telephone Call Contact Type: Orders Provider In-Basket: Yes Outcome: Normal Mammo result letter sent by radiology. Order placed for next year Face to face time spent with Patient (minutes): 0 Total Time including non face to face (minutes): 10 documented in this encounter Plan of Treatment Upcoming Encounters Date Type Department Care Team (Late st Contact Info) Description 06/09/2024 8:00 AM EST Office Visit Rheumatology [place] [id number] [place] [address] Ame Lindsey CRNP [facility] [place] [address] 07/16/2024 7:20 AM EST Office Visit Family Practice [place] [facility] [address] [place] [address] Nina Santiago DO [address] [place] [address] Scheduled Orders Name Type Priority Associated Diagnoses Orde r Schedule MAMMOGRAM SCREENING CHARLY BILATERAL Medical Imaging Routine Encounter for screening mammogram for breast cancer Expected: 04/02/2025, Expires: 05/02/2025 Health Maintenance Due Date Last Done Comments Hepatitis B Vaccine (1 of 3 - 19+ 3-dose series) 10/08/1990 Cologuard 10/08/2016 Colonoscopy 10/08/2016 Colorectal Cancer Screening 10/08/2016 Fecal Occult Blood Test 10/08/2016 Sigmoidoscopy 10/08/2016 Zoster Vaccines (2 of 2) 01/15/2022 11/20/2021 COVID-19 Vaccine ( season) 2024 Influenza Vaccine (FLU shot) (#1) 2024 Depression Screening 07/11/2024 07/11/2023 DTap/Tdap Vaccines (2 - Td or Tdap) 03/03/2025 03/03/2015 Mammogram 03/31/2025 03/31/2024, 03/08, 03/20/2022, Additional history exists Diabetes Screening 03/25/2027 03/25/2024, 0 11/21/2023, 06/25/2022, [...] Not on filedocumented as of this encounter Visit Diagnoses Diagnosis Encounter for screening mammogram for breast cancer- Primary documented in this encounter Advance Directives * [...] Power of Attor mello? No Care Teams Label Pinker Relationship Specialty Start Date End Date Nina Santiago DO [address] [facility] [place] [address] PCP - General Family Medicine 07/11/23 documented as of this encounter
--- OUTSIDE RECORDS SUMMARY | 2024-04-06 09:52 | External Medical Summary | Summary of Care ---
Author Name Unknown Organization [facility] Address [address] [place] [address] Phone [phone] Care Team Providers Care Property Maintenance Supervisor Name Role Phone Nina Santiago DO Primary Care Provider [phone]- [phone] Reason for Visit * Reason Onset Date Comments Fax 03/26/2024 Encounter Details Date Type Department Care Team (Late st Contact Info) Description [facility] [address] [place] [place] [address] Nina Santiago DO [address] [place] [address] Fax Allergies Active Allergy Reactions [...] encounter Miscellaneous Notes * Telephone Encounter - Kelvin Ramirez PA-C [...] was received by office. Name/Company sending fax: [facility] pre admission testing What fax is pertaining [...] 06/09/2024 8:00 AM EST Office Visit Rheumatology [address] [place] [address] Ame Lindsey CRNP [address] [facility] [place] [address] 07/16/2024 7:20 AM EST Office Visit Family Practice [address], [place] [address] [place] [address] Nina Santiago DO [address] [place] [address] Health Maintenance Due Date Last Done Comments [...] Td or Tdap) 03/03/2025 03/03/2015 Diabetes Screening 11/20/2026 11/21/2023, 1 08/26/2021, 06/27/2021, Additional history exists Lipid Panel 11/20/2028 11/21/2023, [...] Power of Attor mello? No Care Teams Property Maintenance Supervisor Relationship Specialty Start Date End Date Nina Santiago DO [address] [facility] [place] [address] PCP - General Family Medicine 07/11/23 documented as of this encounter
[2024-04-06] MEDS: fentaNYL citrate PF 100 MCG/2 ML VIAL IV PRN (10:24)
[2024-04-06] MEDS ORDERED: ONDANSETRON 4 MG OD TAB PO PRN (11:54)
[2024-04-06] MEDS ORDERED: ACETAMINOPHEN 1,000 MG/100 ML VIAL IV PRN (11:54)
[2024-04-06] MEDS ORDERED: NALOXONE HCL 0.4 MG/1 ML VIAL/CARP IV PRN (11:54)
[2024-04-06] MEDS ORDERED: MAGNESIUM HYDROXIDE SUSP 30 ML UDC PO PRN (11:54)
[2024-04-06] MEDS ORDERED: SOD PHOSPHATE/SOD BIPHOSPHATE ENEMA 132 ML BTL PR PRN (11:54)
[2024-04-06] MEDS ORDERED: METOCLOPRAMIDE HCL INJ 5 MG/ML 2 ML VIAL IV PRN (11:54)
[2024-04-06] MEDS ORDERED: LORazepam 0.5 MG TAB PO PRN (11:54)
[2024-04-06] MEDS ORDERED: bisacodyL 10 MG SUPP PR PRN (11:54)
[2024-04-06] MEDS ORDERED: HYDROmorphone INJ 0.5 MG/0.5 ML SYR IV PRN (11:54)
[2024-04-06] MEDS ORDERED: oxyCODONE HCL IR 5 MG TAB (IMMEDIATE RELEASE) PO PRN (11:54)
[2024-04-06] MEDS ORDERED: PROMETHAZINE 12.5 MG/50.5 ML BAG IV PRN (11:54)
[2024-04-06] MEDS ORDERED: diphenhydrAMINE Capsule 25 MG CAP PO PRN (11:54)
[2024-04-06] MEDS ORDERED: ALUMINUM/MAGNESIUM SUSP 30 ML UDC PO PRN (11:54)
[2024-04-06] MEDS ORDERED: DO NOT ADMINISTER PNEUMOCOCCAL VACCINE PRN (11:54)
[2024-04-06] MEDS ORDERED: hydrOXYzine HCl 25 MG TAB PO PRN (11:54)
[2024-04-06] MEDS ORDERED: FAMOTIDINE 20 MG TAB PO PRN (11:54)
[2024-04-06] MEDS ORDERED: DO NOT ADMINISTER FLU VACCINE PRN (11:54)
[2024-04-06] MEDS ORDERED: LORazepam 2 MG/1 ML VIAL IV PRN (11:54)
[2024-04-06] MEDS: HYDROmorphone INJ 1 MG/ML SYRINGE IV PRN (12:55)
[2024-04-06] MEDS: LACTATED RINGER'S 1,000 ML IV SCH (13:20)
--- NOTE | 2024-04-06 13:25 | Anesthesiology Progress Note ---
Date of Service April 06, 2024 Anesthesia Post Procedure Vital Signs Vital Signs: Temp Pulse Resp BP Pulse Ox O2 Del Method O2 Flow Rate 04/06/24 12:24 36.8 C 76 16 110/61 96 Room Air 04/06/24 11:54 35.8 C L 75 16 110/61 96 Room Air 04/06/24 11:30 72 13 117/59 L 98 Nasal Cannula 2 04/06/24 11:15 75 12 109/58 L 98 Nasal Cannula 2 04/06/24 11:05 36.1 C L 84 20 102/56 L 98 Nasal Cannula 2 04/06/24 10:55 68 15 98/48 L 97 Nasal Cannula 2 04/06/24 10:45 75 14 110/65 98 Nasal Cannula 2 04/06/24 10:35 83 12 107/64 98 Nasal Cannula 2 04/06/24 10:25 79 12 112/71 98 Oxymask 3 04/06/24 10:15 86 14 117/69 96 Oxymask 7 04/06/24 10:05 74 12 118/69 100 Oxymask 15 04/06/24 09:56 36.5 C 82 18 126/67 96 Oxymask 15 04/06/24 06:41 36.8 C 73 20 141/65 H 99 Room Air Pain Intensity Lower Back: Pain Intensity: 7 Back: Pain Intensity: 6 Transfer of Care Handoff Completed per policy Notes Mental Status: alert / awake / arousable Patient Amnestic to Procedure: Yes Nausea / Vomiting: adequately controlled Pain: adequately controlled Airway Patency, RR, SpO2: stable & adequate BP & HR: stable & adequate Hydration State: stable & adequate Anesthetic Complications: no major complications apparent and Pt Satisfied with anesthetic care
[2024-04-06] MEDS: KETOROLAC TROMETHAMINE 15 MG/ML VIAL IV SCH (13:43)
[2024-04-06] MEDS: ceFAZolin 1000MG 1,000 MG/7.5 ML SYR IV SCH (15:27)
[2024-04-06] MEDS: traMADol HCL 50 MG TABLET PO PRN (18:35)
[2024-04-06] MEDS: CHOLECALCIFEROL 25 MCG (1000 UNITS) TAB PO SCH (20:22)
[2024-04-06] MEDS: DOCUSATE SODIUM/SENNA 50/8.6MG TAB PO SCH (20:23)
[2024-04-06] MEDS: PANTOprazole 40 MG TAB PO SCH (20:23)
[2024-04-06] MEDS: PREGABALIN 50 MG CAP PO SCH (20:23)
[2024-04-07] MEDS: POLYETHYLENE (MIRALAX) 17 GM PACK PO SCH (05:11)
[2024-04-07 07:43] LABS: Basophils # (auto) 0.01 K/uL (0.00-0.20); Basophils % (auto) 0.2 %; Eosinophils # (auto) 0.04 K/uL (0.00-0.50); Eosinophils % (auto) 0.8 %; Hematocrit (blood only) 27.7 % (37.0-47.0); Immature Granulocytes # (auto) 0.01 K/uL (0.01-0.20); Immature Granulocytes % (auto) 0.2 %; Lymphocytes # (auto) 1.05 K/uL (1.20-3.40); Lymphocytes % (auto) 21.5 %; Mean Corpuscular Hemoglobin 30.3 pg (25.0-34.0); Mean Corpuscular Hgb Conc 32.5 g/dL (32.0-36.0); Mean Corpuscular Volume 93.3 fL (80.0-100.0); Mean Platelet Volume 8.8 fL (9.4-12.4); Monocytes # (auto) 0.57 K/uL (0.11-0.59); Monocytes % (auto) 11.7 %; Neutrophils # (auto) 3.21 K/uL (1.40-6.50); Neutrophils % (auto) 65.6 %; Platelet Count 165 K/uL (130-400); RDW Coefficient of Variation 12.8 % (11.5-14.5); RDW Standard Deviation 43.4 fL (36.4-46.3); Red Blood Count 2.97 M/uL (4.20-5.40); White Blood Count 4.89 K/ul (4.8-10.8)
[2024-04-07 07:58] LABS: BUN Creatinine Ratio 14.5 (10-20); Calcium 8.3 mg/dl (8.6-10.3); Creatinine Clr Calc Pharmacy 77.8 ml/min; Est GFR (Non-African American) 100.1 ml/min; Potassium 4.1 mmol/L (3.5-5.1)
[2024-04-07] MEDS: ACETAMINOPHEN 500 MG TAB PO PRN (08:05)
[2024-04-07] MEDS: TOPIRAMATE 50 MG TAB PO SCH (09:13)
--- NOTE | 2024-04-07 14:39 | Orthopedic Progress Note ---
Date of Service April 07, 2024 Assessment & Plan (1) Degenerative disc disease, lumbar: Plan: At this time we will continue physical therapy monitor her RUPERT output hopefully discharge home the next few days. Admission and Anticipated Discharge Date Admission Date: April 06, 2024 Subjective Patient's back pain is controlled leg symptoms improved Physical Exam Physical Exam: Patient is up and ambulating. Is constricted testing. Results & Data Vital Signs (Past 12 Hours) Vital Signs Temp Pulse Resp BP Pulse Ox O2 Del Method 04/07/24 07:24 36.3 C L 88 18 111/69 95 Room Air 04/07/24 03:45 36.7 C 87 16 97/60 L 97 Room Air
[2024-04-07 20:54] VITALS: O2SAT 97
[2024-04-08 07:28] VITALS: BP 118/72; PULSE 78; RESP 18; TEMP 98.2
--- NOTE | 2024-04-08 08:45 | Orthopedic Progress Note ---
Date of Service April 08, 2024 Assessment & Plan (1) Neurogenic claudication due to lumbar spinal stenosis: Plan: At this time we will continue physical therapy and plan for discharge home in the next day or so. Admission and Anticipated Discharge Date Admission Date: April 06, 2024 Subjective Back pain controlled leg pain improved Physical Exam Physical Exam: Patient is comfortable is neurologically intact. Results & Data Vital Signs (Past 12 Hours) Vital Signs Temp Pulse Resp BP Pulse Ox O2 Del Method 04/08/24 07:27 36.8 C 78 18 118/72 97 Room Air 04/07/24 20:53 37.1 C 95 H 20 125/78 97 Room Air
--- NOTE | 2024-04-08 08:58 | Discharge Summary ---
Date of Service April 08, 2024 Admission HPI Per Admitting Provider This is a 53-year-old female who presents with chronic persistent back and leg pain and failing course of nonoperative care is here for surgical intervention. Principal Diagnosis Lumbar spinal stenosis with spondylolisthesis and neurogenic claudication Discharge Data Allergies Allergy/AdvReac Type Severity Reaction Status Date / Time dexamethasone [From Decadron] Allergy Mild Nausea Verified 04/06/24 06:45 secukinumab Allergy Mild Rash Verified 04/06/24 06:45 diclofenac Allergy Unknown ? Verified 04/06/24 06:45 Hives/nausea etodolac Allergy Unknown ? Verified 04/06/24 06:45 Hives/nausea hydroxychloroquine Allergy Unknown Nausea Verified 04/06/24 06:45 isotretinoin Allergy Unknown Unknown Verified 04/06/24 06:45 leflunomide Allergy Unknown Unknown Verified 04/06/24 06:45 meloxicam Allergy Unknown ? Verified 04/06/24 06:45 Hives/nausea methotrexate Allergy Unknown Unknown Verified 04/06/24 06:45 Procedures Performed Operation Date: 04/06/24 07:45 Actual Procedures p L4-S1 Decompression and Fusion, Spinal Cord Monitoring(Not Applicable) - Kush Carney DO Ordered Studies 04/06/24 07:45 FL lumbar spine 2-3V Routine Hospital Course (1) Neurogenic claudication due to lumbar spinal stenosis: Patient will awaiting PreserVision trial as well as taken orthopedic for postoperative post ablation progressed appropriately. Excellent strength testing. RUPERT drain decreasing. Pain controlled. Simply discharged home. Discharge orders instructions from the chart for further review. Total Time Total Time Spent Total Time Spent (In Minutes): 20 minutes Discharge Plan Discharge Items Patient Disposition: Home - Self-Care Reason For Visit: Spinal Stenosis of Lumbar Region with Radiculopath Discharge Diagnosis: Assessment lumbar spine lumbar spinal stenosis with neurogenic claudication and spondylolisthesis Activity: As commented below Non-emergency contact: Primary Care Provider Call non-emergency contact if: you have any medication questions Follow-up/Referrals: Nina Santiago DO [Primary Care Provider] - Diet: Regular Addtl Attending Provider Instructions: ACTIVITY RECOMMENDATIONS: SELF CARE INSTRUCTIONS AFTER THORACIC/LUMBAR FUSIONS 1. You may walk to your tolerance. It is good exercise for your legs and back. Expect some back and intermittent leg aches and pains. 2. You may perform "counter-top" level activities (make a sandwich, anderson with a project, etc.). 3. No bending or lifting of more than 10 pounds or back twisting of any nature (roll like a log when turning in bed). 4. You may ride in a car for 20-30 minutes at a time. No driving until after your first visit with your doctor. 5. Frequent changes of position and restricting sitting to 30 minutes at a time will help limit the amount of back spasms and stiffness you may experience. 6. You may discontinue the use of ambulatory aids (cane, crutches, etc.) once your strength and confidence allow. 7. You may superintendent maintenance the shower and let water strike your incision when you arrive home at least once daily. Do not take a tub bath, sit in a hot tub or go into a swimming pool until after your first recheck in the office. SPECIAL CARE INSTRUCTIONS: VERY IMPORTANT TO READ AND REVIEW A. Your surgical incision has been closed with a cosmetic suture under the skin that will dissolve in about 6 weeks. In 14 days, you can use a pair of clean scissors and cut the suture that is left outside of the skin at the ends of your incision. 1. The small skin tapes can be removed 7 days after surgery if they have not fallen off by that point. 2. You may keep the wound open to air as much as possible to promote healing after post-op day number 5 unless told otherwise by your doctor. 3. If you think the wound looks like it is becoming infected (redness or worsening drainage) and/or you are experiencing fever, chill or worsening back pain and muscle spasms, contact the office so that we may evaluate you as soon as possible. B. Complications are uncommon, but please contact us if you have any signs or symptoms of: 1. wound infection (fever higher than 102.5 degrees F, redness, separation of wound, drainage, or increasing pain from the incision) 2. blood clots in legs (pain, swelling, redness and warmth in legs) 3. urinary tract infection (fever higher than 102.5 degrees F, burning upon urination or increased frequency of urination) 4. nerve problems (inability to walk on your toes or heels, numbness, loss of bowel or bladder control) 5. any other symptoms that concern you C. Please call the office at if you have any concerns or questions about your operation or recovery. D. No smoking! Smoking drastically decreases the chance of a solid fusion. E. Do not take any anti-inflammatory medications (Indocin, Advil, Motrin, Aspirin, Naprosyn, etc.) as these may inhibit the chance of a solid fusion. Tylenol is okay to take for pain. MANAGING PAIN AFTER SPINAL SURGERY 1. Narcotic medication is intended for short-term use and will be provided for surgical pain. Surgical pain usually lasts for a period of 4-6 weeks. Narcotic medication includes Percocet, Vicodin, Darvocet, Tylenol #3 or Lortab. 2. Longer-term pain is more appropriately treated with non-narcotic medication such as Tylenol ES. 3. Muscle spasm is not appropriately treated with narcotics. Muscle relaxers such as Soma, Flexeril or Skelaxin can be used along with Tylenol ES. 4. Remember that we all live with some "aches and pains". This is not unusual or uncommon after an injury or as we get older. a. Back pain is expected and may include muscle spasms for 4 to 6 weeks after surgery. The pain should gradually improve. If the pain worsens for no apparent reason, please contact the office. b. Intermittent leg pain may also be experienced and should not be concerned about unless it worsens for no apparent reason. If so, please contact the office. 5. We will provide appropriate medication within the normal guidelines of their prescribed use. We will also be very cautious and aware of potential abuse and extended duration of patients' medication needs. a. Pain medications are for your comfort and to assist with sleep and rest so that the tissue can heal. They are not provided in order to return to normal activity and should not be used through the day. To do so or worsening pain at night can result from ongoing tissue damage and development of tolerance to the prescribed medicine. 6. Please allow 2-3 days to process refills. Prescriptions will not be mailed but must be picked up at the office. FOLLOW UP VISIT: Keep your scheduled follow-up appointment. Any questions, please call the office at . Pending Studies at Discharge: No Stand-Alone Forms: [employer], Smoking Cessation Medications and DC Order Prescriptions: New tramadol 50 mg tablet 50 mg PO Q6H PRN (Reason: pain, moderate) Qty: 30 0RF oxycodone 5 mg tablet 5 mg PO Q6H PRN (Reason: pain) Qty: 30 0RF Continued tramadol-acetaminophen 37.5-325 mg Tablet 1 tab PO TID PRN (Reason: Pain) topiramate [Topamax] 25 mg Tablet 50 mg PO QAM pregabalin [Lyrica] 50 mg Capsule 50 mg PO BID omeprazole 20 mg Tablet,Delayed Release (Dr/Ec) 20 mg PO BID cholecalciferol (vitamin D3) [Vitamin D3] 50 mcg (2,000 unit) Capsule 50 mcg PO QPM Held salsalate 750 mg Tablet 750 mg PO TID Rinvoq 15 mg Tablet Extended Release 24 Hr 15 mg PO QPM Discharge Orders: Discharge Order (Routine); Ordered 04/08/24 Ordered By: Kush Carney Admission Data Admit Date/Time: 04/06/24 09:40 Attending Provider: Kush Carney Admit Provider: Kush Carney Primary Care Provider: Nina Santiago
== END 2024-04-08 12:34 | disposition home or self-care (01) | DRG 455 ==
LOC: ASU 06:15 → 3N 09:40